=== PATIENT | female | born 1940 | race Caucasian/White ===

== ENCOUNTER 2021-05-05 14:07 | Inpatient (IN) | payer OTHER ==
[~2021-05-05] VITALS: Ht 152.4 cm; Wt 76.0 kg
[2021-05-05 15:11] LABS: BASOPHILS ABSOLUTE AUTO 0.09 K/mm3 (0.00-0.23); BASOPHILS PERCENT AUTO 1 % (0-2); EOSINOPHILS ABSOLUTE AUTO 0.33 K/mm3 (0.00-0.68); EOSINOPHILS PERCENT AUTO 4 % (0-6); Hematocrit 41.7 % (33.0-51.0); IMMATURE GRAN ABSOLUTE AUTO 0.02 K/mm3 (0.00-0.10); IMMATURE GRAN PERCENT AUTO 0 % (0-1); LYMPHOCYTES ABSOLUTE AUTO 2.55 K/mm3 (0.84-5.20); LYMPHOCYTES PERCENT AUTO 29 % (21-46); MONOCYTES ABSOLUTE AUTO 0.69 K/mm3 (0.16-1.47); MONOCYTES PERCENT AUTO 8 % (4-13); Mean Corpuscular HGB 30.2 pg (26.0-34.0); Mean Corpuscular HGB Conc 33.6 g/dL (31.5-36.5); Mean Corpuscular Volume 90 fL (80-100); Mean Platelet Volume 9.7 fL (9.1-12.4); NEUTROPHILS ABSOLUTE AUTO 5.06 K/mm3 (1.96-9.15); NEUTROPHILS PERCENT AUTO 58 % (41-73); Platelet Count 396 K/mm3 (150-400); RDW Coefficient Variation 13.1 % (11.7-14.2); RDW Standard Deviation 42.7 fL (35.1-46.3); Red Blood Cell Count 4.64 M/mm3 (3.80-5.20); White Blood Cell Count 8.74 K/mm3 (4.00-11.30)
[2021-05-05 15:35] LABS: Alanine Aminotransfer (ALT/SGP 24 U/L (12-78); Albumin, Blood 3.1 g/dL (3.4-5.0); Albumin/Globulin Ratio 0.6 (0.8-1.8); Alk Phos 134 U/L (50-136); Anion Gap 11 mmol/L (6-16); Aspartate Aminotrans (AST/SGOT 19 U/L (12-37); Bilirubin, Total 0.4 mg/dL (0.1-1.0); Blood Urea Nitrogen 19 mg/dL (8-24); Bun/Creatinine Ratio 23.9 (12.0-20.0); CO2, Blood 22 mmol/L (21-32); Calcium, Blood 9.1 mg/dL (8.5-10.1); Chloride, Blood 108 mmol/L (98-108); Globulin, Blood 4.9 g/dL (2.2-4.0); Glomerular Filtration Rate >60 (60-); Glucose, Blood 119 mg/dL (70-99); Potassium, Blood 3.8 mmol/L (3.5-5.5); Sodium, Blood 141 mmol/L (136-145); Troponin I 0.068 ng/mL (0.000-0.040)
[2021-05-05] MEDS ORDERED: ATORVASTATIN CA20 MG PO (16:42)
[2021-05-05 18:07] LABS: International Normalized Ratio 1.02; Prothrombin Time Results 10.7 Sec (9.7-11.5)
[2021-05-05 18:22] LABS: SARS-Cov-2 (COVID-19) PCR, MMC NEGATIVE (NEGATIVE)
[2021-05-06 01:02] LABS: BASOPHILS ABSOLUTE AUTO 0.09 K/mm3 (0.00-0.23); BASOPHILS PERCENT AUTO 1 % (0-2); EOSINOPHILS ABSOLUTE AUTO 0.43 K/mm3 (0.00-0.68); EOSINOPHILS PERCENT AUTO 4 % (0-6); Hematocrit 39.3 % (33.0-51.0); Hemoglobin 13.2 g/dL (11.5-16.0); IMMATURE GRAN ABSOLUTE AUTO 0.04 K/mm3 (0.00-0.10); IMMATURE GRAN PERCENT AUTO 0 % (0-1); LYMPHOCYTES ABSOLUTE AUTO 3.55 K/mm3 (0.84-5.20); LYMPHOCYTES PERCENT AUTO 34 % (21-46); MONOCYTES ABSOLUTE AUTO 0.84 K/mm3 (0.16-1.47); MONOCYTES PERCENT AUTO 8 % (4-13); Mean Corpuscular HGB 29.9 pg (26.0-34.0); Mean Corpuscular HGB Conc 33.6 g/dL (31.5-36.5); Mean Corpuscular Volume 89 fL (80-100); Mean Platelet Volume 9.7 fL (9.1-12.4); NEUTROPHILS ABSOLUTE AUTO 5.56 K/mm3 (1.96-9.15); NEUTROPHILS PERCENT AUTO 53 % (41-73); Platelet Count 371 K/mm3 (150-400); RDW Standard Deviation 42.6 fL (35.1-46.3); Red Blood Cell Count 4.41 M/mm3 (3.80-5.20); White Blood Cell Count 10.51 K/mm3 (4.00-11.30)
[2021-05-06 01:20] LABS: Alanine Aminotransfer (ALT/SGP 19 U/L (12-78); Albumin, Blood 2.9 g/dL (3.4-5.0); Albumin/Globulin Ratio 0.7 (0.8-1.8); Alk Phos 120 U/L (50-136); Anion Gap 6 mmol/L (6-16); Aspartate Aminotrans (AST/SGOT 18 U/L (12-37); Bilirubin, Total 0.5 mg/dL (0.1-1.0); Blood Urea Nitrogen 21 mg/dL (8-24); Bun/Creatinine Ratio 29.5 (12.0-20.0); CO2, Blood 26 mmol/L (21-32); Calcium, Blood 8.9 mg/dL (8.5-10.1); Chloride, Blood 108 mmol/L (98-108); Creatinine, Blood 0.71 mg/dL (0.40-1.00); Globulin, Blood 4.2 g/dL (2.2-4.0); Glomerular Filtration Rate >60 (60-); Glucose, Blood 116 mg/dL (70-99); Potassium, Blood 3.8 mmol/L (3.5-5.5); Sodium, Blood 140 mmol/L (136-145); Total Protein, Blood 7.1 g/dL (6.4-8.2)
--- NOTE | 2021-05-06 08:34 | NUR ---
ASSUMED PT CARE THIS AM. PT A/OX4, NEURO INTACT, PERRLA 3, LEON WITHOUT DEFICIT OR ASYMETRY. PT REPORTS THAT SOB HAS IMPROVED OVER NIGHT, PT ON 2L NC, SATS 95% AND GREATER. NO C/O CP OR CHEST PRESSURE THIS AM. PULSES STRONG TO BILATERAL RADIAL, R DORSALIS; LEFT DORSALIS WEAK. PT DENIES ANY N/V, NUMBNESS OR TINGLING. NO VOID LAST NIGHT. ASSISTED PT TO BED KIM, UNABLE TO VOID. BLADDER SCAN WITH 299. PT REPORTS SHE HAS HAD VERY LITTLE INTAKE. SPOKE WITH CT REGARDING PLAN. PT DECLINES STOOL SOFTENERS, DENIES ANY FURTHER NEEDS OR QUESTIONS AT THIS TIME.
--- NOTE | 2021-05-06 10:24 | NUR ---
DR GUTIERREZ IN TO SEE PT, STATES PT WILL NOT NEED PROCEDURE TODAY, CT WITHOUT ORAL CONTRAST CLARIFIED BY DR GUTIERREZ, RN COMMUNICATED THIS TO GEOMATICS PROFESSOR. MD MICHAEL CALLED RE PT NPO STATUS, DIET NOW ORDERED. PT DENIES NEED TO VOID AT THIS TIME, STATES SHE BARELY HAD ANYTHING TO DRINK YESTERDAY. PO FLUIDS GIVEN, WILL HAVE PT ATTEMPT TO VOID DESI. BLADDER SCAN REMAINS LESS THAN 400.
--- NOTE | 2021-05-06 17:51 | NUR ---
SHIFT SUMMARY PT A/OX4, FACE SYMMETRICAL, LEON, NO C/O NUMBNESS/TINGLING. PT REPORTS THAT CHEST PRESSURE AND SOB HAS IMPROVED SIGNIFICANTLY SINCE LAST NOC. HEP GTT INCREASED TO 17UNITS/HR, REPEAT PTT AT 2300. PT TAKEN TO CT OF ABDOMEN. TOLERATING PO DIET WITHOUT ISSUE. VOIDING IN BED PAIN SUCCESSFULLY.
[2021-05-07 05:28] LABS: Hemoglobin 13.8 g/dL (11.5-16.0); Mean Corpuscular HGB 30.4 pg (26.0-34.0); Mean Corpuscular HGB Conc 33.7 g/dL (31.5-36.5); Mean Corpuscular Volume 90 fL (80-100); Mean Platelet Volume 10.4 fL (9.1-12.4); Platelet Count 396 K/mm3 (150-400); RDW Standard Deviation 42.5 fL (35.1-46.3); Red Blood Cell Count 4.54 M/mm3 (3.80-5.20); White Blood Cell Count 9.29 K/mm3 (4.00-11.30)
[2021-05-07 06:04] LABS: Alanine Aminotransfer (ALT/SGP 26 U/L (12-78); Albumin, Blood 2.8 g/dL (3.4-5.0); Albumin/Globulin Ratio 0.6 (0.8-1.8); Alk Phos 122 U/L (50-136); Anion Gap 4 mmol/L (6-16); Aspartate Aminotrans (AST/SGOT 48 U/L (12-37); Bilirubin, Total 0.6 mg/dL (0.1-1.0); Blood Urea Nitrogen 21 mg/dL (8-24); Bun/Creatinine Ratio 27.6 (12.0-20.0); CO2, Blood 28 mmol/L (21-32); Calcium, Blood 8.6 mg/dL (8.5-10.1); Chloride, Blood 107 mmol/L (98-108); Creatinine, Blood 0.76 mg/dL (0.40-1.00); Globulin, Blood 4.9 g/dL (2.2-4.0); Glomerular Filtration Rate >60 (60-); Glucose, Blood 103 mg/dL (70-99); Potassium, Blood 4.9 mmol/L (3.5-5.5); Sodium, Blood 139 mmol/L (136-145); Total Protein, Blood 7.7 g/dL (6.4-8.2)
--- NOTE | 2021-05-07 08:58 | NUR ---
ASSUMED PT CARE, PT A/OX4, LEON, DENIES PAIN, NV, NUMBNESS/TINGLING OR DYSPNEA. O2 TITRATED DOWN TO 1L WITHOUT ISSUE, WILL WORK ON GETTING PT TO RA TODAY TOLERATED. VSS. PT TOLERATING PO INTAKE AND VOIDING WITHOUT ISSUE. SPOKE WITH DR GUTIERREZ RE: PT BEDREST STATUS, NEW ORDER OBTAINED FOR PT TO BE UP AD KOFFI. PLAN FOR PT TO LIKELY TRANSFER OUT OF ICU TODAY. HEP GTT RUNNING AT 18 UNITS/HR, RECHECK PTT AT 1200.
--- NOTE | 2021-05-07 16:09 | NUR ---
REPORT GIVEN TO MS RN. PT WILL TRANSFER TO MS WITHIN THE HOUR. PT AND UPDATED.
--- NOTE | 2021-05-08 06:44 | NUR ---
SHIFT SUMMARY PATIENT ALERT AND ORIENTED. HAD NO COMPLAINTS OF PAIN OR SHORTNESS OF BREATH. NO ACUTE ISSUES NOTED OVERNIGHT. CALL LIGHT WITHIN REACH. REPORT GIVEN TO ONCOMING RN.
[2021-05-08] MEDS ORDERED: ELIQUIS5 M2 PO (11:28)
--- NOTE | 2021-05-08 12:07 | NUR ---
DISCHARGE SUMMARY PATIENT IS AOX4. PATIENT HAD NO ACUTE EVENTS THIS SHIFT. PATIENTS HEPARIN WAS DCD AND PATIENT STARTED ON HOME MEDICATION OF ELIQUIS TO RESOLVE BLOOD CLOTS. PATIENT WAS EDUCATED ON HOME MEDICATIONS AND DISCHARGE INFORMATION. PATIENT VERBALLY AGREED UNDERSTANDING. PATIENTS CAME UP TO GET PATIENT DRESSED AND WHEELED PATIENT OUT TO PERSONAL AUTOMOBILE.
== END 2021-05-08 12:18 | disposition home or self-care (01) | DRG 175 ==
LOC: ER 14:07 → ICUW 19:37 → ICUE 19:37 → MEDS 05-07 16:48
PROVIDERS: Internal Medicine; Physician Assistant; Student in an Organized Health Care Education/Training Program; ADMIT Internal Medicine
DX: I26.09 Other pulmonary embolism with acute cor pulmonale (principal); J96.01 Acute respiratory failure with hypoxia; I82.442 Acute embolism and thrombosis of left tibial vein; E78.5 Hyperlipidemia, unspecified; Z20.822 Contact with and (suspected) exposure to COVID-19; Z23 Encounter for immunization; R59.1 Generalized enlarged lymph nodes; Z87.891 Personal history of nicotine dependence; Z51.5 Encounter for palliative care; Z88.0 Allergy status to penicillin; Z79.899 Other long term (current) drug therapy
CPT/HCPCS: 36415; 71260; 74177; 80053; 83880; 84484; 85025; 85027; 85610; 85730; 90686; 93005; 93010; 93306; 93970; 96365; 96375; 96376; 99285-25; A9270; G0008; J1644; Q9967; U0004

== ENCOUNTER → 2021-05-05 | Outpatient (CLI) | payer OTHER ==
[~2021-05-05] MED LIST: ATORVASTATIN CA20 MG PO; ELIQUIS5 M2 PO
== END | disposition home or self-care (01) ==
LOC: LAB SHORT 12:11
DX: R73.9 Hyperglycemia, unspecified (principal); R09.02 Hypoxemia
CPT/HCPCS: 83036; 83880; 85379

== ENCOUNTER 2021-10-15 17:50 | Emergency (ER) | payer OTHER ==
[~2021-10-15] VITALS: Ht 152.4 cm; Wt 76.2 kg
== END 2021-10-15 21:45 | disposition home or self-care (01) ==
LOC: ER 17:50
DX: R59.0 Localized enlarged lymph nodes (principal); Z88.0 Allergy status to penicillin; Z79.01 Long term (current) use of anticoagulants; Z79.899 Other long term (current) drug therapy
CPT/HCPCS: 76536; 99283-25

== ENCOUNTER 2021-12-21 08:06 | Day surgery (SDC) | payer OTHER ==
[~2021-12-21] VITALS: Ht 154.9 cm; Wt 70.1 kg
[~2021-12-21 08:06] MED LIST changes: +XARELTO20 MG PO
--- NOTE | 2021-12-21 08:55 | NUR ---
Ambulatory in Day Surgery History, Chart, Medications and Allergies reviewed before start of procedure. Lungs clear T/O to Auscultation. Patient confirms NPO status and agrees with scheduled surgery. Pre-Op teaching done. Pt verbalizes understanding. Patient States Post-Procedure ride home has been arranged.
--- NOTE | 2021-12-21 12:09 | NUR ---
PT TO STEP. DENIES PAIN OR NAUSES. DERMA KINGSLEY D/I OVER SURGICAL SITE.
== END 2021-12-21 12:57 | disposition home or self-care (01) ==
LOC: ORSCMMR 08:06 → ORD 09:30 → ORSCMMR 12:57
PROVIDERS: Surgery
PROC: 05HM33Z Insertion of Infusion Device into Right Internal Jugular Vein, Percutaneous Approach (ICD-10-PCS; principal; 2021-12-21 09:30)
PROC: B543ZZA Ultrasonography of Right Jugular Veins, Guidance (ICD-10-PCS; principal; 2021-12-21 09:30)
DX: C34.11 Malignant neoplasm of upper lobe, right bronchus or lung (principal); Z87.891 Personal history of nicotine dependence; Z86.711 Personal history of pulmonary embolism; Z79.01 Long term (current) use of anticoagulants
CPT/HCPCS: 77001; C1788; J0690; J1100; J1642; J2405; J2704; J3010; J7120

== ENCOUNTER → 2022-03-02 | Outpatient (CLI) | payer OTHER | END | disposition home or self-care (01) | LOC: LAB SHORT 10:26 | DX: C34.90 Malignant neoplasm of unspecified part of unspecified bronchus or lung (principal); R06.00 Dyspnea, unspecified | CPT/HCPCS: 85379 ==

== ENCOUNTER 2024-07-25 11:15 | Day surgery (SDC) | payer OTHER ==
[~2024-07-25] VITALS: Ht 152.4 cm; Wt 76.9 kg
[~2024-07-25 11:15] MED LIST changes: +ALBU90OI INH; +Balanced Salt Epinephrine Irrigation Solution 500 mL IR SCH; +CENTRUM SILVER1 EAC2 PO; +DECADRON4 M1 PO; +Diazepam 2 MG Tab ONE; +Lidocaine HCl/Pf 1% 5 ML VIAL XX SCH; +Lovastatin20 MG PO; +Moxifloxacin HCL 0.5 MG/0.1 ML 0.4MLSYR RIGHTEYE SCH; +OYSTER SHELL 51 EACH PO; +Ondansetron Odt8 MG MM; +PHENYLEPHRINE\\TROPICAMIDE\\TETRACAINE OPHTHALMIC DILATING SOLN RIGHTEYE PRN; +Povidone-Iodine 450 DROP/30 ML Solution ONE; +Povidone-Iodine 450 DROP/30 ML Solution RIGHTEYE SCH; +STIOLTO RESPIMAT4 G1 INH; +Tetracaine HCl/Pf 0.5% Opth Soln 4 ml ONE; +Triamcinolone Inj Susp 40 MG / ML 1ML Vial INJ SCH; +Triamcinolone Inj Susp 40 MG / ML 1ML Vial ONE
[2024-07-25] MEDS ORDERED: LOSARTAN POTASS25 M2 PO (11:31)
[2024-07-25] MEDS ORDERED: Tetracaine HCl 0.5% Opth Soln 15 ml RIGHTEYE ONE (11:51)
[2024-07-25 12:28] VITALS: BP 140/80
== END 2024-07-25 12:25 | disposition home or self-care (01) ==
LOC: ORSCSDS 11:15
PROVIDERS: Ophthalmology
PROC: 08RJ3JZ Replacement of Right Lens with Synthetic Substitute, Percutaneous Approach (ICD-10-PCS; principal; 2024-07-25 12:30)
DX: H25.813 Combined forms of age-related cataract, bilateral (principal); I10 Essential (primary) hypertension; E78.5 Hyperlipidemia, unspecified; J45.909 Unspecified asthma, uncomplicated; Z85.118 Personal history of other malignant neoplasm of bronchus and lung; Z86.711 Personal history of pulmonary embolism; Z79.01 Long term (current) use of anticoagulants; Z79.899 Other long term (current) drug therapy; E66.9 Obesity, unspecified; Z68.33 Body mass index [BMI] 33.0-33.9, adult
CPT/HCPCS: A9270; J3301; V2632

== ENCOUNTER 2024-08-08 08:05 | Day surgery (SDC) | payer OTHER ==
[~2024-08-08] VITALS: Ht 152.4 cm; Wt 78.5 kg
[~2024-08-08 08:05] MED LIST changes: -Diazepam 2 MG Tab ONE; +LOSARTAN POTASS25 M2 PO; +Moxifloxacin HCL 0.5 MG/0.1 ML 0.4MLSYR LEFTEYE SCH; -Moxifloxacin HCL 0.5 MG/0.1 ML 0.4MLSYR RIGHTEYE SCH; +PHENYLEPHRINE\\TROPICAMIDE\\TETRACAINE OPHTHALMIC DILATING SOLN LEFTEYE PRN; -PHENYLEPHRINE\\TROPICAMIDE\\TETRACAINE OPHTHALMIC DILATING SOLN RIGHTEYE PRN; +Povidone-Iodine 450 DROP/30 ML Solution LEFTEYE SCH; -Povidone-Iodine 450 DROP/30 ML Solution RIGHTEYE SCH
[2024-08-08] MEDS ORDERED: Diazepam 2 MG Tab ONE (08:32)
--- NOTE | 2024-08-08 08:54 | NUR ---
08/08/24 0854 Fabienne Quiroz VALIUM 4MG GIVEN 0844 PLEDGET AT 0846 PLEDGET AT 0847
[2024-08-08] MEDS ORDERED: Midazolam HCl 1MG / ML 2ML Vial ONE (09:39)
[2024-08-08 10:43] VITALS: BP 163/81
== END 2024-08-08 10:17 | disposition home or self-care (01) ==
LOC: ORSCSDS 08:05
PROVIDERS: Ophthalmology
PROC: 08RK3JZ Replacement of Left Lens with Synthetic Substitute, Percutaneous Approach (ICD-10-PCS; principal; 2024-08-08 09:30)
DX: H25.812 Combined forms of age-related cataract, left eye (principal); Z96.1 Presence of intraocular lens; Z79.899 Other long term (current) drug therapy; I10 Essential (primary) hypertension; E78.2 Mixed hyperlipidemia; H40.059 Ocular hypertension, unspecified eye; E66.9 Obesity, unspecified; Z68.33 Body mass index [BMI] 33.0-33.9, adult; Z87.891 Personal history of nicotine dependence; Z79.01 Long term (current) use of anticoagulants; Z86.718 Personal history of other venous thrombosis and embolism
CPT/HCPCS: A9270; J2250; J3301; V2632

== ENCOUNTER 2025-06-03 08:35 | Day surgery (SDC) | payer OTHER ==
[2025-06-03] VITALS (12 sets, daily range): BP systolic 96–148; BP diastolic 56–73
[~2025-06-03] VITALS: Ht 152.4 cm; Wt 77.3 kg
[~2025-06-03 08:35] MED LIST changes: -Balanced Salt Epinephrine Irrigation Solution 500 mL IR SCH; +LOVA40 PO; -Lidocaine HCl/Pf 1% 5 ML VIAL XX SCH; -Lovastatin20 MG PO; -Moxifloxacin HCL 0.5 MG/0.1 ML 0.4MLSYR LEFTEYE SCH; -PHENYLEPHRINE\\TROPICAMIDE\\TETRACAINE OPHTHALMIC DILATING SOLN LEFTEYE PRN; -Povidone-Iodine 450 DROP/30 ML Solution LEFTEYE SCH; -Povidone-Iodine 450 DROP/30 ML Solution ONE; -Tetracaine HCl/Pf 0.5% Opth Soln 4 ml ONE; -Triamcinolone Inj Susp 40 MG / ML 1ML Vial INJ SCH; -Triamcinolone Inj Susp 40 MG / ML 1ML Vial ONE
[2025-06-03] MEDS ORDERED: Tranexamic Acid 100 ML IV SCH (09:00)
[2025-06-03] MEDS ORDERED: Chlorhexidine Mouth Care 15 ML UDC MT SCH (09:00)
[2025-06-03] MEDS ORDERED: CeFAZolin Sodium 2,000 MG in NS 100 ML IV SCH ×2 (09:00→20:00)
[2025-06-03] MEDS ORDERED: Ropivacaine 0.5% HCl/Pf 123.125 MG,EPINEPHrine HCL 0.25 MG,Ketorolac Tromethamine 15 MG... INFIL SCH (09:00)
--- NOTE | 2025-06-03 09:35 | NUR ---
AMBULATORY INTO [facility]. PT REPORTS 3/10 LEFT KNEE PAIN. HISTORY AND ALLERGIES REVIEWED. LUNGS WITH SCATTERED RHONCHI THAT CLEARS WITH COUGH. SOB NOTED ON EXERTION. PT HAS OCCASIONAL COUGH PRODUCTIVE OF CLEAR SPUTUM. SATS 100% ON RA. RR 22-28. NPO STATUS CONFIRMED. PT UNABLE TO REMOVE [place]EDDING RING-JEWELRY FORM SIGNED. PT HAS BILATERAL HEARING AIDES AND UPPER DENTURE-CUP LABELED AND WILL BE SENT BACK TO OR. PT CLOTHING IN BELONGINGS BAG BELOW [facility].
[2025-06-03] MEDS ORDERED: FentaNYL Citrate 50 MCG/ML 2 ML Injection ONE (09:47)
[2025-06-03] MEDS ORDERED: Albuterol 2.5 MG/3 ML VIAL INH PRN (09:55)
[2025-06-03] MEDS ORDERED: FentaNYL Citrate 50 MCG/ML 2 ML Injection IV PRN ×3 (09:55)
[2025-06-03] MEDS ORDERED: Ondansetron HCl 2 MG / ML 2ML Vial IV PRN ×2 (09:55→10:40)
[2025-06-03] MEDS ORDERED: HYDROmorphone HCl/Pf 1MG SYR IV PRN ×2 (09:55→10:35)
[2025-06-03] MEDS ORDERED: Metoclopramide HCl 5MG / ML 2ML Vial IV PRN ×2 (10:00→10:40)
[2025-06-03] MEDS ORDERED: Magnesium Hydroxide Conc 10 ML UDC PO PRN (10:35)
[2025-06-03] MEDS ORDERED: FLU VACC TS2025(65UP)/MF59C/PF 45 MCG/0.5 ML SYRINGE IM SCH (10:35)
[2025-06-03] MEDS ORDERED: Phenylephrine HCl 100 MCG/ML-NS 10MLSYR (1MG/10ML) ONE (12:05)
[2025-06-03] MEDS ORDERED: Ipratropium/Albuterol SulF 2.5-0.5MG/3 ML Amp INH SCH (12:45)
--- NOTE | 2025-06-03 13:50 | NUR ---
POST OP ARRIVAL TO SURGICAL UNIT VIA HOSPITAL BED. ALERT, ORIENTED, & PLEASANT. ASSESSMENT CHARTED. DENIES PAIN & UNABLE TO WIGGLE TOES OR FEEL BLE. DENIES N/V SO SNACKS & DRINKS GIVEN. CRYOTHERAPY IN PLACE.
--- NOTE | 2025-06-03 19:45 | NUR ---
SHIFT SUMMARY AT 1840 STILL COULD NOT LIFT L LEG SO USED BEDPAN TO VOID. PAIN CONTROLLED. VSS. EATING & DRINKING.
[2025-06-04 00:44] VITALS: BP 116/57
[2025-06-04 05:08] VITALS: BP 124/60
[2025-06-04 05:33] LABS: BASOPHILS ABSOLUTE AUTO 0.05 K/mm3 (0.00-0.23); BASOPHILS PERCENT AUTO 1 % (0-2); EOSINOPHILS ABSOLUTE AUTO 0.16 K/mm3 (0.00-0.68); EOSINOPHILS PERCENT AUTO 2 % (0-6); Hematocrit 35.6 % (33.0-51.0); Hemoglobin 11.6 g/dL (11.5-16.0); IMMATURE GRAN ABSOLUTE AUTO 0.03 K/mm3 (0.00-0.10); IMMATURE GRAN PERCENT AUTO 0 % (0-1); LYMPHOCYTES ABSOLUTE AUTO 1.19 K/mm3 (0.84-5.20); LYMPHOCYTES PERCENT AUTO 17 % (21-46); MONOCYTES ABSOLUTE AUTO 0.77 K/mm3 (0.16-1.47); MONOCYTES PERCENT AUTO 11 % (4-13); Mean Corpuscular HGB Conc 32.6 g/dL (31.5-36.5); Mean Corpuscular Volume 94 fL (80-100); NEUTROPHILS ABSOLUTE AUTO 4.76 K/mm3 (1.96-9.15); NEUTROPHILS PERCENT AUTO 68 % (41-73); NRBC ABSOLUTE 0.00 K/mm3 (0.00-0.02); NRBC Auto 0.0 /100 WBC (0.0-0.2); Platelet Count 279 K/mm3 (150-400); RDW Coefficient Variation 13.3 % (11.7-14.2); RDW Standard Deviation 45.5 fL (35.1-46.3)
[2025-06-04 06:09] LABS: Anion Gap 9.0 mmol/L (3-11); Blood Urea Nitrogen 18.0 mg/dL (8-24); CO2, Blood 25.0 mmol/L (21-32); Calcium, Blood 8.2 mg/dL (8.5-10.1); Chloride, Blood 108.0 mmol/L (98-108); Creatinine, Blood 0.96 mg/dL (0.40-1.00); Glucose, Blood 114.0 mg/dL (70-99); Potassium, Blood 4.3 mmol/L (3.5-5.5); Sodium, Blood 138.0 mmol/L (136-145)
--- NOTE | 2025-06-04 06:39 | NUR ---
SHIFT SUMMARY POD 1 L TKA. DRESSING C/D/I. VSS. PAIN MANAGED WELL PER EMAR. PT TOLERATING PO INTAKE. PT UTILIZING BEDSIDE COMMODE WITH 1 PERSON ASSIST AND FWW. POLAR PACK IN PLACE. CALL LIGHT WITHIN REACH.
[2025-06-04 07:09] VITALS: BP 132/66
--- NOTE | 2025-06-04 09:50 | NUR ---
DC INSTRUCT REVIEWED. STATED UNDERSTANDING. AWAITING RIDE FOR D/C HOME.
--- NOTE | 2025-06-04 10:51 | NUR ---
Pt. is dressed and waiting discharge when she welcomes my visit. Pt. is pleasant. Pts. daughter came to drive her home. Facilitated a short life review and considered matters of karla and belief. Pt. then verbalized recognizing this gunner's mate g from the community. Pt. displayed evidence of trust and hoe. Prayaed with the Pt. Pt. verbalized gratitude for the spiritual care visit.
--- NOTE | 2025-06-04 10:52 | NUR ---
dc'd to pov via w/c
== END 2025-06-04 10:59 | disposition home or self-care (01) ==
LOC: ORSCMMR 08:35 → ORD 10:00 → SURS 13:46 → ORSCMMR 06-04 10:59
PROVIDERS: Orthopaedic Surgery
PROC: 0SRD0JA Replacement of Left Knee Joint with Synthetic Substitute, Uncemented, Open Approach (ICD-10-PCS; principal; 2025-06-03 11:30)
DX: M17.12 Unilateral primary osteoarthritis, left knee (principal); I50.9 Heart failure, unspecified; J45.909 Unspecified asthma, uncomplicated; Z85.118 Personal history of other malignant neoplasm of bronchus and lung; Z86.711 Personal history of pulmonary embolism; Z79.01 Long term (current) use of anticoagulants; Z79.899 Other long term (current) drug therapy
CPT/HCPCS: 36415; 73560-LT; 80048; 85025; 94640; 94664; 94760; 97110; 97162; 97530; A9270; C1713; C1776; J0166; J0690; J0735; J1885; J2371; J2704; J2795; J3010; J7120